=== PATIENT | female | born 1980 | race Caucasian/White ===

== ENCOUNTER 2020-11-02 18:29 | Inpatient (IN) | payer OTHER ==
[~2020-11-02] VITALS: Ht 157.5 cm; Wt 52.7 kg
--- NOTE | 2020-11-02 18:58 | NUR ---
c/o abd pain radiating to lower back since 4pm today, +nausea. PT AAOX4, VSS. RR EVEN & UNLABORED. DENIES CP, SOB, DIZZINESS AT THIS TIME. PT SEEN & EVAL'D BY KEYSHAWN ALONZO. WILL CONT TO MONITOR.
[2020-11-02] MEDS ORDERED: ONDANSETRON HCL/PF 4 MG/2 ML VIAL ONE (18:59)
[2020-11-02] MEDS ORDERED: ONDANSETRON HCL/PF 4 MG/2 ML VIAL IV ONE (19:00)
[2020-11-02] MEDS ORDERED: IV NS 0.9% 1,000 ML BAG IV ONE (19:00)
[2020-11-02] MEDS ORDERED: FAMOTIDINE/PF INJ 20 MG/2 ML VIAL IV ONE ×2 (19:00)
[2020-11-02 19:04] LABS: BASOPHILS # (AUTO) 0.1 /CMM (0.0-0.2); BASOPHILS % (AUTO) 0.3 % (0.0-2.0); HEMATOCRIT 39 % (33-45); LYMPHOCYTES # (AUTO) 1.7 /CMM (0.8-4.8); LYMPHOCYTES % (AUTO) 7.7 % (20.0-44.0); MEAN CORPUSCULAR HGB CONC 33 g/dl (31.0-36.0); MEAN CORPUSCULAR VOLUME 96 fL (82-100); MONOCYTES # (AUTO) 1.1 /CMM (0.1-1.30); MONOCYTES % (AUTO) 4.9 % (2.0-12.0); NEUTROPHILS # (AUTO) 19.5 /CMM (1.8-8.9); NEUTROPHILS % (AUTO) 87.1 % (43.0-81.0); PLATELET COUNT (AUTO) 281 /CMM (150-450); RED BLOOD CELL COUNT(AUTO) 4.07 MIL/uL (4.0-5.2); WHITE BLOOD COUNT (AUTO) 22.4 K/uL (4.3-11.0)
--- NOTE | 2020-11-02 19:05 | NUR ---
REC'D REPORT FROM GAVIN DODSON FOR BI
[2020-11-02 19:12] LABS: CALCIUM, SERUM 8.3 mg/dL (8.5-10.1); CREATININE 0.7 mg/dL (0.6-1.3); POTASSIUM 3.1 mmol/L (3.5-5.1)
--- NOTE | 2020-11-02 19:14 | NUR ---
US AT BEDSIDE
[2020-11-02 19:18] LABS: BILIRUBIN,DIRECT 0.2 mg/dL (0.0-0.2); BILIRUBIN,TOTAL 0.5 mg/dL (0.2-1.0); TOTAL PROTEIN, SERUM 7.7 g/dL (6.4-8.2)
[2020-11-02] MEDS ORDERED: MORPHINE SULFATE INJ 2 MG/ML DISP.SYRIN IV ONE (19:30)
[2020-11-02] MEDS ORDERED: MORPHINE SULFATE INJ 4 MG/ML DISP.SYRIN ONE (19:33)
[2020-11-02 20:02] LABS: BILIRUBIN,URINE Negative (NEGATIVE); COLOR,URINE YELLOW (YELLOW); LEUKOCYTE ESTERASE ,URINE Negative (NEGATIVE); NITRITE, URINE Negative (NEGATIVE); PH,URINE 8.5 (5.0-8.0); PROTEIN,URINE Negative (NEGATIVE); UGLUCOSE Negative (NEGATIVE)
--- NOTE | 2020-11-02 20:02 | NUR ---
urine sent to lab
[2020-11-02] MEDS ORDERED: IV NS 0.9% 250 ML IV ONE (20:27)
[2020-11-02] MEDS ORDERED: CT SWABBABLE VALVE TRANS SET 1 EA INFUS.SET MC ONE (20:27)
[2020-11-02] MEDS ORDERED: IOHEXOL-300 100 ML VIAL IV ONE (20:27)
[2020-11-02 20:29] LABS: BACTERIA,URINE Few /HPF (None Seen); MUCUS,URINE Many /LPF (None Seen); RBC,URINE 0-2 /HPF (0-2); SQUAMOUS EPITHELIAL CELL,UR Few /HPF (None Seen); WBC,URINE 0-2 /HPF (0-3)
[2020-11-02] MEDS ORDERED: PIPERACILLIN /TAZOBACTAM 3.375 G in IV D5W 50 ML IV ONE (21:30)
--- NOTE | 2020-11-02 21:31 | NUR ---
COVID SWAB SENT TO LAB
[2020-11-02] MEDS ORDERED: PIPERACILLIN /TAZOBACTAM 3.375 G VIAL IV ONE (21:32)
[2020-11-02] MEDS ORDERED: IV NS 0.9% 1,000 ML IV ONE (22:00)
--- NOTE | 2020-11-02 22:05 | NUR ---
COVID NEGATIVE, PER LAB
[2020-11-02 22:10] VITALS: BP 110/66
[2020-11-02] MEDS ORDERED: MAG HYDROX/AL HYDROX/SIMETH 30 ML UDC PO PRN (22:30)
[2020-11-02] MEDS ORDERED: MAGNESIUM HYDROXIDE 30 ML UDC PO PRN (22:30)
[2020-11-02] MEDS ORDERED: ONDANSETRON HCL/PF 4 MG/2 ML VIAL IVP PRN (22:30)
[2020-11-02] MEDS ORDERED: ACETAMINOPHEN 325 MG TABLET PO PRN (22:30)
[2020-11-02] MEDS ORDERED: MORPHINE SULFATE INJ 2 MG/ML DISP.SYRIN IV PRN (22:30)
[2020-11-02] MEDS ORDERED: IV NS 0.9% 1,000 ML IV PRN (22:30)
[2020-11-02] MEDS ORDERED: ZOLPIDEM TARTRATE 5 MG TABLET PO PRN (22:30)
[2020-11-02] MEDS ORDERED: HYDROCODONE/APAP 5/325MG TABLET PO PRN (22:30)
[2020-11-02] MEDS ORDERED: Z GUARD REMEDY 2 OZ OINT TP PRN (22:30)
--- NOTE | 2020-11-02 22:51 | NUR ---
GAVE REPORT TO GAVIN MARSHALL FOR BI
--- NOTE | 2020-11-02 23:48 | NUR ---
MS RN: ADMISSION [id number] 40 y/o female admitted to unit for procedure surgery in am. Patient is A/O x4 skin intact, multiple body skin tatoo. Orientation to room, unit, staff. Made comfortable in bed, no c/o pain at this time. Fall precaution maintained.
[2020-11-03] MEDS ORDERED: PIPERACILLIN /TAZOBACTAM 3.375 G in IV D5W 50 ML IV SCH
[2020-11-03] MEDS ORDERED: BUPIVACAINE MPF 0.5% W/EPI INJ 30 ML VIAL ONE (03:56)
[2020-11-03] MEDS ORDERED: ANESTHESIA TRAY IN PYXIS 1 EA TRAY MC ONE (03:56)
[2020-11-03] MEDS ORDERED: MIDAZOLAM HCL 2 MG/2ML VIAL ONE (04:02)
[2020-11-03] MEDS ORDERED: FENTANYL PF 250MCG/5ML AMPUL ONE (04:02)
[2020-11-03] MEDS ORDERED: FAMOTIDINE/PF INJ 20 MG/2 ML VIAL IV ONE (04:03)
[2020-11-03] MEDS ORDERED: BUPIVACAINE MPF W/EPI 0.25% 30 ML VIAL ONE (04:20)
--- NOTE | 2020-11-03 04:25 | NUR ---
DAY SURGERY Surgery pre op check list completed. Patient consented procedure- Laparoscopic appendectomy, possible open. Patient transferred to OR by bed.
[2020-11-03] MEDS ORDERED: ZOSYN IVPB 3.375 G in IV D5W 50ml IV SCH (06:00)
--- NOTE | 2020-11-03 06:15 | NUR ---
END OF SHIFT REPORT OFF unit. Patient in OR for surgery. Will endorse to oncoming RN.
--- NOTE | 2020-11-03 06:46 | NUR ---
S/P LAPAROSCOPIC APPENDECTOMY. Patient is back to unit, transferred by bed accompanied with GAVIN Leiva. Abdomen x3 lap site glued open to air. Patient reports abdomen with mild discomfort. No N/V. Stable on room air with Oxygen sat 100%. Will endorse to Oncoming RN.
[2020-11-03 06:54] VITALS: BP 97/58
[2020-11-03 07:05] LABS: BASOPHILS # (AUTO) 0.1 /CMM (0.0-0.2); BASOPHILS % (AUTO) 0.5 % (0.0-2.0); HEMATOCRIT 32 % (33-45); HEMOGLOBIN 10.8 g/dL (11.5-14.8); LYMPHOCYTES # (AUTO) 0.7 /CMM (0.8-4.8); MEAN CORPUSCULAR HGB CONC 34 g/dl (31.0-36.0); MEAN CORPUSCULAR VOLUME 96 fL (82-100); MONOCYTES # (AUTO) 0.2 /CMM (0.1-1.30); MONOCYTES % (AUTO) 1.6 % (2.0-12.0); NEUTROPHILS # (AUTO) 12.2 /CMM (1.8-8.9); NEUTROPHILS % (AUTO) 92.9 % (43.0-81.0); PLATELET COUNT (AUTO) 202 /CMM (150-450); RED BLOOD CELL COUNT(AUTO) 3.32 MIL/uL (4.0-5.2); WHITE BLOOD COUNT (AUTO) 13.1 K/uL (4.3-11.0)
--- NOTE | 2020-11-03 07:26 | NUR ---
MS RN OPENING NOTES RECEIVED PATIENT IN BED RESTING. PATIENT IS A/O X 4. PATIENT IS BREATHING EVENLY AND UNLABORED ON ROOM AIR. NO SX OF DISTRESS NOTED. PATIENT IS STATUS POST APPENDECTOMY. PATIENT HAS 3 LAP SITE WRAPPED. PATIENT HAS LAC #20 GAUGE PATENT AND INTACT. SAFETY MEASURES ARE IN PLACE. BED LOW LOCKED AND CALL LIGHT WITHIN REACH. WILL CONTINUE TO MONITOR
[2020-11-03 07:38] LABS: CALCIUM, SERUM 7.6 mg/dL (8.5-10.1); CREATININE 0.7 mg/dL (0.6-1.3); MAGNESIUM 1.5 mg/dL (1.8-2.4); PHOSPHORUS 2.5 mg/dL (2.5-4.9)
[2020-11-03 08:00] VITALS: BP 100/50
[2020-11-03] MEDS ORDERED: PIPERACILLIN /TAZOBACTAM 3.375 G in IV D5W 100 ML IV SCH (10:00)
[2020-11-03] MEDS: POTASSIUM CHLORIDE 20 MEQ TAB.PRT.SR PO SCH ×3 (11:27→13:36)
[2020-11-03] MEDS: Magnesium 1GM/D5W 100ML PREMIX 100 ML IV SCH ×2 (11:27→12:24)
[2020-11-03] MEDS ORDERED: POTASSIUM CL. PREMIX PERIPHER. 50 ML IV SCH (11:30)
--- NOTE | 2020-11-03 11:47 | NUR ---
RN NOTES PATIENT WAS SEEN BY MD. STATED PATIENT COULD GO HOME IF ABLE TO WALK, EAT, DRINK, AND PASS GAS. PATIENT'S ABDOMEN IS SOFT NONTENDER WITH SOME BLOATING PER PATIENT. BOWEL SOUNDS ARE CURRENTLY HYPOACTIVE. WILL CONTINUE TO MONITOR.
[2020-11-03] MEDS ORDERED: ACET325T53 PO (13:28)
--- NOTE | 2020-11-03 17:48 | NUR ---
OPERATIONS AGENT NOTES RECEIVED PATIENT DISCHARGE ORDER. PATIENT IS A/O X 4 BREATHING EVENLY AND UNLABORED ON ROOM AIR. PATIENT IS STATUS POST APPENDECTOMY. PATIENT WAS ABLE TO TOLERATE FOOD, LIQUID AND PASSED GAS. REMOVED PATIENT'S IV AND TOLERATED WELL. ID BAND REMOVED. PATIENT WAS PICKED UP BY . PATIENT LEFT IN STABLE CONDITION VIA PRIVATE CAR.
== END 2020-11-03 17:49 | disposition home or self-care (01) | DRG 343 ==
LOC: ER 18:29 → MED 22:43
PROVIDERS: ADMIT Nurse Practitioner Acute Care; ATTEND Nurse Practitioner Acute Care
PROC: 0DTJ4ZZ Resection of Appendix, Percutaneous Endoscopic Approach (ICD-10-PCS; principal; 2020-11-03)
DX: K35.80 Unspecified acute appendicitis (principal); E87.6 Hypokalemia; D25.9 Leiomyoma of uterus, unspecified; Z20.822 Contact with and (suspected) exposure to COVID-19
CPT/HCPCS: 36415; 76856-TC; 80048-TC; 80076-TC; 81001; 83605-TC; 83690-TC; 83735-TC; 84100-TC; 84702-TC; 84703-TC; 85025-TC; 85730-TC; 87081-TC; C9803; G0378; J0690; J1100; J2250; J2270; J2405; J2543; J2704; J2765; J3010; J3475; J3490; J7030; J7050; J7060; Q9967